=== PATIENT | female | born 1985 | race Caucasian/White ===

== ENCOUNTER → 2019-05-12 15:32 | Outpatient (BNVA) | payer MEDICARE, MEDICAID, SELFPAY | PROVIDERS: Family Provider Registered Nurse; PCP Registered Nurse; Referring Provider Nurse Practitioner Women's Health; Visit Provider Nurse Practitioner Women's Health | DX: Z30.9 Encounter for contraceptive management, unspecified (principal) | CPT/HCPCS: 81025 ==

== ENCOUNTER → 2019-08-04 10:46 | Outpatient (BNVA) | payer MEDICARE, MEDICAID, SELFPAY | PROVIDERS: Family Provider Registered Nurse; PCP Registered Nurse; Visit Provider Registered Nurse | DX: Z20.828 Contact with and (suspected) exposure to other viral communicable diseases (principal) | CPT/HCPCS: 87635 ==

== ENCOUNTER → 2019-11-23 11:55 | Outpatient (BNVA) | payer MEDICARE, MEDICAID, SELFPAY | PROVIDERS: Family Provider Registered Nurse; PCP Registered Nurse; Visit Provider Nurse Practitioner Women's Health | DX: Z30.42 Encounter for surveillance of injectable contraceptive (principal); N92.1 Excessive and frequent menstruation with irregular cycle | CPT/HCPCS: 81025 ==

== ENCOUNTER → 2020-05-18 09:34 | Outpatient (BNVA) | payer MEDICARE, MEDICAID, SELFPAY | PROVIDERS: Family Provider Registered Nurse; PCP Registered Nurse; Visit Provider Registered Nurse | DX: N92.1 Excessive and frequent menstruation with irregular cycle (principal); Z30.9 Encounter for contraceptive management, unspecified | CPT/HCPCS: 81025 ==

== ENCOUNTER → 2020-07-30 11:13 | Outpatient (BNVA) | payer MEDICARE, MEDICAID, SELFPAY | PROVIDERS: Family Provider Registered Nurse; PCP Registered Nurse; Visit Provider Nurse Practitioner | DX: M79.672 Pain in left foot (principal) | CPT/HCPCS: 73630 ==

== ENCOUNTER 2020-08-14 07:04 | Outpatient (CLI) | payer MEDICARE, MEDICAID, SELFPAY ==
--- NOTE | 2020-08-14 07:15 | MR_ITS ---
WS: [id number] INDICATION: Left foot pain. Sharp pain left foot to toes. Left foot swelling. TECHNIQUE: MRI left foot without gadolinium enhancement. Sagittal PD, axial T1, axial STIR axial PD a xial T2 sagittal STIR, coronal PD coronal T2 fat sat FINDINGS: Normal ankle mortise. Normal medial and lateral malleolus. Normal talus. Normal talar dome. Distal Achilles is normal in appearance. Normal bone marrow signal in the calcaneus. Normal talocalc aneal articulation. Normal peroneus longus and brevis. Normal extensor and flexor compartment tendons. Normal metatarsals . Normal talus. Normal plantar aponeurosis. No drainable abscess or fluid collection. No other signif icant findings. MR/MR foot LT wo con* [id number] IMPRESSION: 1. Normal ankle mortise. Normal bone marrow signal in the talar dome. 2. Normal peroneal longus and brevis. 3. Normal extensor and flexor compartment tendons. 4. No acute fractures. 5. No other significant findings.
== END 2020-08-14 07:05 | disposition home or self-care (01) ==
LOC: RADSHAW 07:08
PROVIDERS: PCP Nurse Practitioner Family; Visit Provider Nurse Practitioner Family
DX: M79.672 Pain in left foot (principal); M79.89 Other specified soft tissue disorders
CPT/HCPCS: 73718

== ENCOUNTER 2020-11-23 11:32 | Outpatient (CLI) | payer MEDICARE, MEDICAID, SELFPAY ==
--- NOTE | 2020-11-23 11:38 | MR_ITS ---
WS: [id number] MRI HEAD WITH CONTRAST TECHNIQUE: Sagittal T1, T2 axial, T2 axial FLAIR, axial susceptibility weighted imaging, axial diffus ion weighted images, and coronal T2 images were obtained. Pre and post-T1 axial and post T1 coronal i mages. ADC and FSPGR images. CLINICAL INFORMATION: HEADACHE COMPARISON: MRI FINDINGS: No evidence of restricted diffusion to suggest acute ischemia. Ventricular system and basal cisterns are patent. Normal posterior fossa. Normal vascular flow voids at the skull base. No extra-axial flui d collections. No evidence of mass or mass effect. Mastoid air cells well aerated. Retention cyst left maxillary sinus. Paranasal sinuses are otherwise well aerated. No hemosiderin on susceptibly weighted images. Normal optic chiasm and pituitary infund ibulum. Normal cavernous sinuses and Meckel's cave. Temporal lobes and hippocampal formations are nor mal in appearance. No abnormal intracranial enhancement. Normal dural venous sinuses. Minimal incidental low-lying cereb ral tonsils. Normal fourth ventricle. MR/MR head wo/w con [id number] IMPRESSION: 1. No evidence of restricted diffusion to suggest acute ischemia. 2. A few tiny foci of T2 hyperintensity in the frontal periventricular and sub cortical white matter nonspecific in a patient this age but can be seen with mi graine headaches. 3. No abnormal gadolinium enhancement. Normal dural venous sinuses. 4. No hemosiderin on susceptibly weighted images. 5. No other significant findings.
[2020-11-23] MEDS: gadobenate dimeglumine 20 mL vial IV (16:14)
== END 2020-11-23 11:33 | disposition home or self-care (01) ==
LOC: RADSHAW 11:36
PROVIDERS: PCP Nurse Practitioner Family; Visit Provider Nurse Practitioner Family
DX: R51.9 Headache, unspecified (principal)
CPT/HCPCS: 70553; 88175; A9577

== ENCOUNTER → 2021-01-05 14:33 | Outpatient (BNVA) | payer MEDICARE, MEDICAID, SELFPAY | PROVIDERS: PCP Nurse Practitioner Family; Referring Provider Nurse Practitioner Women's Health; Visit Provider Dermatology | DX: B36.0 Pityriasis versicolor (principal); L73.9 Follicular disorder, unspecified; L85.8 Other specified epidermal thickening; Z80.8 Family history of malignant neoplasm of other organs or systems; D22.9 Melanocytic nevi, unspecified | CPT/HCPCS: 87220 ==

== ENCOUNTER → 2021-07-03 10:22 | Outpatient (BNVA) | payer MEDICARE, MEDICAID, SELFPAY | PROVIDERS: PCP Nurse Practitioner Family; Referring Provider Nurse Practitioner Family; Visit Provider Internal Medicine | DX: M25.50 Pain in unspecified joint (principal); R79.82 Elevated C-reactive protein (CRP); Z11.59 Encounter for screening for other viral diseases | CPT/HCPCS: 36415; 72202; 73120; 82024; 82550; 82784; 83516; 85651; 86140; 86160; 86162; 86200; 86235; 86255; 86376; 86431; 86704; 86803; 87340; 99204 ==

== ENCOUNTER → 2021-07-11 14:28 | Outpatient (BNVA) | payer MEDICARE, MEDICAID, SELFPAY | PROVIDERS: PCP Nurse Practitioner Family; Visit Provider Internal Medicine | DX: M25.50 Pain in unspecified joint (principal); R79.82 Elevated C-reactive protein (CRP); R79.89 Other specified abnormal findings of blood chemistry; Z79.899 Other long term (current) drug therapy | CPT/HCPCS: 99214 ==

== ENCOUNTER → 2021-07-16 08:04 | Outpatient (BNVA) | payer MEDICARE, MEDICAID, SELFPAY | PROVIDERS: PCP Nurse Practitioner Family; Visit Provider Internal Medicine | DX: R79.89 Other specified abnormal findings of blood chemistry (principal) | CPT/HCPCS: 82024; 82533 ==

== ENCOUNTER → 2021-08-07 14:15 | Outpatient (BNVA) | payer MEDICARE, MEDICAID, SELFPAY | PROVIDERS: PCP Nurse Practitioner Family; Visit Provider Internal Medicine | DX: R74.8 Abnormal levels of other serum enzymes (principal); K52.9 Noninfective gastroenteritis and colitis, unspecified; R79.89 Other specified abnormal findings of blood chemistry; M25.50 Pain in unspecified joint; R79.82 Elevated C-reactive protein (CRP); F41.8 Other specified anxiety disorders; M79.7 Fibromyalgia; G47.00 Insomnia, unspecified | CPT/HCPCS: 80053; 82103; 82390; 83516; 85025; 86376 ==

== ENCOUNTER → 2021-08-16 14:39 | Outpatient (BNVA) | payer MEDICARE, MEDICAID, SELFPAY | PROVIDERS: PCP Nurse Practitioner Family; Visit Provider Internal Medicine | DX: R79.89 Other specified abnormal findings of blood chemistry (principal); R23.8 Other skin changes | CPT/HCPCS: 99204 ==

== ENCOUNTER 2021-08-20 05:45 | Day surgery (SDC) | payer MEDICARE, MEDICAID, SELFPAY ==
[2021-08-16 13:20] VITALS: BMI 34.0
[2021-08-20 06:25] VITALS: BP 143/79; PULSE 79; RESP 16; TEMP 36.6; O2SAT 99
[2021-08-20] MEDS: sodium chloride 0.9% 1,000 ML 30 ML IV (06:43)
[2021-08-20 06:45] LABS: OR HCG Qualitative Urine Negative (Negative)
--- NOTE | 2021-08-20 06:50 | ANES.PREANE2 ---
Pre-Anesthetic Assessment Height/Weight: Height 1.73 m Weight 101.605 kg Temp Pulse Resp BP Pulse Ox 97.8 F 79 16 143/79 99 08/20/21 06:25 08/20/21 06:25 08/20/21 06:25 08/20/21 06:25 08/20/21 06:25 Preop Diagnosis: diarrhea Operation Date: 08/20/21 07:00 Proposed Procedures p EGD and colonoscopy 00586,49033,K52.9(Not Applicable) - Redd Pham MD s Colonoscopy(Not Applicable) - Redd Pham MD Familial anesthetic complications: None Was Beta Yokasta taken within 24 hours: N/A Was Clonidine taken within 24 hours: N/A Last intake: Intake Last Liquid Date 08/19/21 Last Liquid Time 22:00 Last Solid Date 08/18/21 Last Solid Time 19:00 Social No alcohol and No tobacco Exam alert, oriented x 3, clear to auscultation bilaterally and regular rate & rhythm Airway Submandibular: within normal limits Cervical ROM: within normal limits Mallampati: Class III Dentition: chipped and loose Comments: Comments: very poor History/ROS Other Pulmonary None reported CV/HEM None reported None reported Hepatic None reported GI Gastroesophageal Reflux Disease Metabolic None reported Musc/skel Fibromyalgia and Osteoarthritis/DJD Neuropsych Depression and Headache Anesthetic Plan ASA status: 2 Anesthesia: MAC Risk of > 500 ml blood loss (7ml/kg in children): No Medications/Allergies Home Medications Medication Instructions Recorded Confirmed Last Taken Type gabapentin 100 mg capsule 100 mg PO TID 09/19/20 08/20/21 08/18/21 History medroxyprogesterone 150 mg/mL 150 mg IM .every 3 months #1 ml 11/24/20 08/20/21 05/22/21 Rx intramuscular syringe (Depo-Provera) clindamycin phosphate 1 % lotion 1 applic TOPICAL BID #60 ml 01/05/21 08/20/21 08/18/21 Rx ketoconazole 2 % shampoo 1 applic TOPICAL ONCE #120 ml 01/05/21 08/20/21 08/18/21 Rx ketoconazole 2 % topical cream 1 applic TOPICAL BID #60 g 01/05/21 08/20/21 08/18/21 Rx rizatriptan 10 mg tablet (Maxalt) 10 mg PO Q2H PRN 01/05/21 08/20/21 08/18/21 History semaglutide 3 mg tablet (Rybelsus) 3 mg PO DAILY 01/05/21 08/20/21 08/18/21 History triamcinolone acetonide 0.1 % 1 applic TOPICAL BID #80 g 02/08/21 08/20/21 Unknown Rx topical ointment amitriptyline 10 mg tablet 20 mg PO DAILY tab 07/03/21 08/20/21 08/18/21 History sertraline 50 mg tablet (Zoloft) 75 mg PO DAILY tab 07/03/21 08/20/21 08/18/21 History topiramate 25 mg tablet (Topamax) 25 mg PO TID tab 07/03/21 08/20/21 08/18/21 History tramadol 50 mg tablet 50 mg PO DAILY PRN 07/03/21 08/20/21 Unknown History meloxicam 15 mg tablet 15 mg PO DAILY #30 tab 08/10/21 08/20/21 08/18/21 Rx Allergies Allergy/AdvReac Type Severity Reaction Status Date / Time aspirin Allergy ALGY-Hives Verified 08/16/21 14:45 Sulfa (Sulfonamide Allergy ALGY-Hives Verified 08/16/21 14:45 Antibiotics) codeine AdvReac ADR-Nausea- Verified 08/16/21 14:45 STOMACH UPSET ibuprofen AdvReac ADR-Nausea- Verified 08/16/21 14:45 STOMACH UPSET naproxen AdvReac ADR-Nausea- Verified 08/16/21 14:45 STOMACH UPSET Current Medications Generic Name Dose Route Start Last Admin Trade Name Freq PRN Reason Stop Dose Admin Sodium Chloride 1,000 mls @ 30 mls/hr 08/20/21 06:00 08/20/21 06:43 Sodium Chloride 0.9% IV 30 mls/hr .Q24H BEL Administration PFSH Anesthesia Medical History Anxiety with depression Fibromyalgia High serum adrenocorticotropic hormone (ACTH) Insomnia, controlled Menorrhagia with irregular cycle Migraine Morbid obesity No pertinent past medical history neghx: htn,dm,thyroid,dvt/pe PCP: Nomi Osteoarthritis of both hands Surgical History H/O laparoscopy (07/18/08) Diagnostic laparoscopy performed on 07/18/2008. Records obtained and are scanned ----Procedure performed by Javy Frias in [facility] ambulatory surgery. Diagnostic laparoscopy was performed for pelvic pain of unknown etiology and history of endometriosis, history of PID. --Reviewed operative report shows that the uterus was normal size and mobile within the pelvis anterior cul-de-sac was clear showing no signs of adhesions or endometriosis posterior cul-de-sac was clear without signs of endometriosis or induration. Bilateral fallopian tubes were normal without signs of PID. Bilateral ovaries were normal without any adhesions or endometriosis. Appendix appeared normal. No adhesions noted around the liver. The diagnostic laparoscopy was within normal physiological limits and no obvious etiology of pain was present. History of cholecystectomy (2002) [facility]--- laparoscopic procedure. History of hysteroscopy (05/02/05) Pelviscopy with D&C--- performed by Dr. Marino at [facility]--> mild uterine enlargement and mild endometriosis on the left side Family History Grandfather Colon cancer Maternal grandfather--dx age 60's Family/Other Diabetes Maternal great aunt Uterine cancer Maternal aunt--dx age 50's Maternal Cousin x2-- both early 30's Mother Hypertension Uterine cancer dx age 45 Grandmother Ovarian cancer Maternal grandmother--dx age late 40's Other CAD (coronary artery disease) Cancer Denies family history of Rheumatoid arthritis Lupus Heart disease Hyperlipidemia Chronic kidney disease (CKD) Breast cancer Family history of thyroid problem Stroke Social History Smoking and tobacco status: never smoked Alcohol intake: former History of recent travel: No Data Anesthesia Cardiac Studies: No Data to Display
--- NOTE | 2021-08-20 07:16 | P.HP_ITS ---
Same Day Surgery H&P Indication for Procedure/HPI DATE OF PROCEDURE: August 20, 2021 CHIEF COMPLAINT/INDICATIONFOR SURGICAL PROCEDURE: Chronic diarrhea PREOP DIAGNOSIS: diarrhea PLANNED PROCEDURE: Operation Date: 08/20/21 07:00 Proposed Procedures p EGD and colonoscopy 86750,28025,K52.9(Not Applicable) - Redd Pham MD s Colonoscopy(Not Applicable) - Redd Pham MD Medications/Allergies* Home Medications Medication Instructions Recorded Confirmed Type gabapentin 100 mg capsule 100 mg PO TID 09/19/20 08/20/21 History rizatriptan 10 mg tablet (Maxalt) 10 mg PO Q2H PRN 01/05/21 08/20/21 History semaglutide 3 mg tablet (Rybelsus) 3 mg PO DAILY 01/05/21 08/20/21 History amitriptyline 10 mg tablet 20 mg PO DAILY tab 07/03/21 08/20/21 History sertraline 50 mg tablet (Zoloft) 75 mg PO DAILY tab 07/03/21 08/20/21 History topiramate 25 mg tablet (Topamax) 25 mg PO TID tab 07/03/21 08/20/21 History tramadol 50 mg tablet 50 mg PO DAILY PRN 07/03/21 08/20/21 History Allergies/Adverse Reactions Allergy/AdvReac Type Severity Reaction Status Date / Time aspirin Allergy ALGY-Hives Verified 08/16/21 14:45 Sulfa (Sulfonamide Allergy ALGY-Hives Verified 08/16/21 14:45 Antibiotics) codeine AdvReac ADR-Nausea- Verified 08/16/21 14:45 STOMACH UPSET ibuprofen AdvReac ADR-Nausea- Verified 08/16/21 14:45 STOMACH UPSET naproxen AdvReac ADR-Nausea- Verified 08/16/21 14:45 STOMACH UPSET Current Medications: Generic Name Dose Route Start Last Admin Trade Name Freq PRN Reason Stop Dose Admin Sodium Chloride 1,000 mls @ 30 mls/hr 08/20/21 06:00 08/20/21 06:43 Sodium Chloride 0.9% IV 30 mls/hr .Q24H BEL Administration Pertinent History/Comorbid Conditions* Medical History (Updated 08/16/21 @ 15:15 by Deyvi Ryan MD) Anxiety with depression Fibromyalgia High serum adrenocorticotropic hormone (ACTH) Insomnia, controlled Menorrhagia with irregular cycle Migraine Morbid obesity No pertinent past medical history neghx: htn,dm,thyroid,dvt/pe PCP: Nomi Osteoarthritis of both hands Surgical History (Updated 11/23/19 @ 08:58 by Mariella Nathan APN, TIFF) H/O laparoscopy (07/18/08) Diagnostic laparoscopy performed on 07/18/2008. Records obtained and are scanned ----Procedure performed by Javy Frias in [facility] ambulatory surgery. Diagnostic laparoscopy was performed for pelvic pain of unknown etiology and history of endometriosis, history of PID. --Reviewed operative report shows that the uterus was normal size and mobile within the pelvis anterior cul-de-sac was clear showing no signs of adhesions or endometriosis posterior cul-de-sac was clear without signs of endometriosis or induration. Bilateral fallopian tubes were normal without signs of PID. Bilateral ovaries were normal without any adhesions or endometriosis. Appendix appeared normal. No adhesions noted around the liver. The diagnostic laparoscopy was within normal physiological limits and no obvious etiology of pain was present. History of cholecystectomy (2002) [facility]--- laparoscopic procedure. History of hysteroscopy (05/02/05) Pelviscopy with D&C--- performed by Dr. Mairno at [facility]--> mild uterine enlargement and mild endometriosis on the left side Family History (Updated 07/03/21 @ 10:55 by Ivory Morales LPN) Colon cancer Grandfather Maternal grandfather--dx age 60's Ovarian cancer Grandmother Maternal grandmother--dx age late 40's Diabetes Family/Other Maternal great aunt CAD (coronary artery disease) Cancer Hypertension Mother Uterine cancer Family/Other Maternal aunt--dx age 50's Maternal Cousin x2-- both early 30's Mother dx age 45 Denies family history of Rheumatoid arthritis Lupus Heart disease Hyperlipidemia Chronic kidney disease (CKD) Breast cancer Family history of thyroid problem Stroke Social History Smoking and tobacco status: never smoked Alcohol intake: former History of recent travel: No Pertinent Exam Findings alert, oriented x 3, clear to auscultation bilaterally, regular rate & rhythm, operative site marked and procedure specific exam findings Recommendations Surgery/Procedure today Coding Level of Care Code Acute 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
--- NOTE | 2021-08-20 07:44 | ANE.PACU2 ---
Inpatient post-anesthesia follow up: Airway intact: Yes Vital signs: Temperature 97.8 F Pulse Rate 79 Respiratory Rate 16 Blood Pressure 143/79 Pulse Oximetry 99 Oxygen Delivery Me thod Room Air Oxygen Flow Rate Fraction of Inspir ed Oxygen Hydration adequate: Yes Nausea and vomiting: No Pain level: 1 Mental status: Baseline
[2021-08-20 07:45] VITALS: BP 134/91; PULSE 91; RESP 12; TEMP 36.1; O2SAT 99
[2021-08-20 07:57] VITALS: BP 127/80; PULSE 76; RESP 16; O2SAT 100
[2021-08-22 06:45] LABS: H. Pylori / CLO Test Negative
== END 2021-08-20 08:10 | disposition home or self-care (01) ==
PROVIDERS: Anesthesiology; PCP Nurse Practitioner Family; Visit Provider Internal Medicine
PROC: 0DJ08ZZ Inspection of Upper Intestinal Tract, Via Natural or Artificial Opening Endoscopic (ICD-10-PCS; CPT 43235; principal; 2021-08-20 07:00)
PROC: 0DJD8ZZ Inspection of Lower Intestinal Tract, Via Natural or Artificial Opening Endoscopic (ICD-10-PCS; CPT 45378; 2021-08-20 07:00)
DX: K52.9 Noninfective gastroenteritis and colitis, unspecified (principal); K29.70 Gastritis, unspecified, without bleeding; K21.9 Gastro-esophageal reflux disease without esophagitis; M79.7 Fibromyalgia; M19.90 Unspecified osteoarthritis, unspecified site; F41.9 Anxiety disorder, unspecified; F32.9 Major depressive disorder, single episode, unspecified; E66.01 Morbid (severe) obesity due to excess calories; Z68.34 Body mass index [BMI] 34.0-34.9, adult; Z80.0 Family history of malignant neoplasm of digestive organs
CPT/HCPCS: 43239; 45378; 82274; 83630; 84703; 87077; 87493; 87506; 88305; J2704; J7030

== ENCOUNTER → 2021-11-20 08:31 | Outpatient (BNVA) | payer MEDICARE, MEDICAID, SELFPAY | PROVIDERS: PCP Nurse Practitioner Family; Visit Provider Internal Medicine | DX: M25.50 Pain in unspecified joint (principal); R79.89 Other specified abnormal findings of blood chemistry; Z79.899 Other long term (current) drug therapy; Z30.9 Encounter for contraceptive management, unspecified | CPT/HCPCS: 80053; 85025; 85651; 86140 ==

== ENCOUNTER → 2021-12-05 16:03 | Outpatient (BNVA) | payer MEDICAID, SELFPAY | PROVIDERS: PCP Nurse Practitioner Family; Visit Provider Internal Medicine | DX: M25.50 Pain in unspecified joint (principal); R79.82 Elevated C-reactive protein (CRP) | CPT/HCPCS: 99213 ==

== ENCOUNTER → 2022-02-26 14:54 | Outpatient (BNVA) | payer MEDICARE, MEDICAID, SELFPAY | PROVIDERS: PCP Nurse Practitioner Family; Visit Provider Nurse Practitioner Women's Health | DX: N92.1 Excessive and frequent menstruation with irregular cycle (principal) | CPT/HCPCS: 81025 ==

== ENCOUNTER 2022-03-06 09:51 | Outpatient (CLI) | payer MEDICARE, MEDICAID, SELFPAY ==
[2022-03-06 10:56] LABS: Urine Creatinine 75 mg/dL (28-217)
[2022-03-06 10:57] LABS: Total Volume Urine 2200 ml
[2022-03-14 08:34] LABS: Free Cortisol Urine 40.3 mcg/24 h (4.0-50.0); Total Urine 2200 mL; Urine Creatinine 1.69 g/24 h (0.50-2.15)
== END 2022-03-06 09:52 | disposition home or self-care (01) ==
LOC: LAB 10:10
PROVIDERS: PCP Nurse Practitioner Family; Visit Provider Internal Medicine
DX: R79.89 Other specified abnormal findings of blood chemistry (principal); R74.8 Abnormal levels of other serum enzymes
CPT/HCPCS: 82530; 82570

== ENCOUNTER → 2022-04-10 14:55 | Outpatient (BNVA) | payer MEDICARE, MEDICAID, SELFPAY | PROVIDERS: PCP Nurse Practitioner Family; Visit Provider Internal Medicine | DX: R79.82 Elevated C-reactive protein (CRP) (principal); M25.541 Pain in joints of right hand; M25.542 Pain in joints of left hand; M25.571 Pain in right ankle and joints of right foot; M25.572 Pain in left ankle and joints of left foot; R60.9 Edema, unspecified; J06.9 Acute upper respiratory infection, unspecified | CPT/HCPCS: 99214 ==

== ENCOUNTER → 2022-06-04 09:34 | Outpatient (BNVA) | payer MEDICARE, MEDICAID, SELFPAY | PROVIDERS: PCP Nurse Practitioner Family; Visit Provider Nurse Practitioner Women's Health | DX: Z30.9 Encounter for contraceptive management, unspecified (principal) | CPT/HCPCS: 81025 ==

== ENCOUNTER 2022-07-02 09:33 | Outpatient (CLI) | payer MEDICARE, MEDICAID, SELFPAY ==
[2022-07-02 10:24] LABS: Basophils % 0.5 %; Eosinophils # 0.1 10^3/uL (0.0-0.8); Eosinophils % 0.9 %; Hematocrit 41.3 % (37.0-47.0); Hemoglobin 13.5 g/dL (11.5-15.3); Lymphocytes # 1.4 10^3/uL (0.8-4.8); Lymphocytes % 21.3 %; Mean Corpuscular HGB Conc 32.7 g/dL (30.0-36.0); Mean Corpuscular Hemoglobin 29.1 pg (28.0-34.0); Mean Platelet Volume 9.4 fL (7.4-10.4); Monocytes # 0.4 10^3/uL (0.2-0.9); Neutrophils # 4.74 10^3/uL (1.8-7.7); Neutrophils % 71.1 %; Nucleated Red Blood Cells % 0 %; Platelet Count 315 10^3/cmm (130-400); Red Blood Count 4.64 10^6/uL (4.1-5.3); Red Cell Distribution Width 12.2 % (12.1-15.1); White Blood Count 6.7 10^3/uL (4.0-10.0)
[2022-07-02 10:30] LABS: Erythrocyte Sedimentation Rate 16 mm/hr (0-15)
[2022-07-02 10:45] LABS: Alanine Aminotransferase 20 U/L (0-33); Albumin Level 4.2 g/dL (3.5-5.2); Alkaline Phosphatase 66 U/L (35-105); Anion Gap 15.1 (5-19); Aspartate Amino Transferase 19 U/L (0-32); Blood Urea Nitrogen 13 mg/dL (6-20); C Reactive Protein 4.1 mg/L (0.0-4.9); Calcium 9.2 mg/dL (8.5-10.5); Carbon Dioxide 22 mmol/L (22-29); Chloride 104 mmol/L (98-107); Glomerular Filtration Rate 139.6 mL/min (90-130); Glucose 83 mg/dL (65-115); Osmolality Calculated 283 mOsm/kg (285-295); Potassium 4.1 mmol/L (3.5-5.1); Sodium 137 mmol/L (136-145); Total Bilirubin 0.4 mg/dL (0.15-1.2); Total Protein 7.2 g/dL (6.6-8.7)
== END 2022-07-02 09:34 | disposition home or self-care (01) ==
PROVIDERS: PCP Nurse Practitioner Family; Visit Provider Internal Medicine
DX: M25.50 Pain in unspecified joint (principal)
CPT/HCPCS: 36415; 80053; 83516; 85025; 85651; 86140

== ENCOUNTER → 2022-10-21 08:40 | Outpatient (BNVA) | payer MEDICARE, MEDICAID, SELFPAY | PROVIDERS: PCP Nurse Practitioner Family; Visit Provider Podiatrist Foot & Ankle Surgery | DX: M25.372 Other instability, left ankle | CPT/HCPCS: 73610; 99203 ==

== ENCOUNTER → 2022-12-02 09:18 | Outpatient (BNVA) | payer MEDICARE, MEDICAID, SELFPAY | PROVIDERS: PCP Nurse Practitioner Family; Visit Provider Podiatrist Foot & Ankle Surgery | DX: M25.372 Other instability, left ankle (principal) | CPT/HCPCS: 99213 ==

== ENCOUNTER → 2023-04-01 14:05 | Outpatient (BNVA) | payer MEDICARE, MEDICAID, SELFPAY | PROVIDERS: PCP Nurse Practitioner Family; Visit Provider Podiatrist Foot & Ankle Surgery | DX: M25.372 Other instability, left ankle (principal) | CPT/HCPCS: 99213 ==

== ENCOUNTER → 2023-04-30 13:23 | Outpatient (BNVA) | payer MEDICARE, MEDICAID, SELFPAY | PROVIDERS: PCP Nurse Practitioner Family; Referring Provider Family Medicine; Visit Provider Surgery | DX: Z98.890 Other specified postprocedural states (principal); Z90.49 Acquired absence of other specified parts of digestive tract | CPT/HCPCS: 99203 ==

== ENCOUNTER → 2023-07-09 09:59 | Outpatient (BNVA) | payer MEDICARE, MEDICAID, SELFPAY | PROVIDERS: PCP Nurse Practitioner Family; Visit Provider Podiatrist Foot & Ankle Surgery | DX: M25.372 Other instability, left ankle (principal); M25.572 Pain in left ankle and joints of left foot; G89.29 Other chronic pain | CPT/HCPCS: 99213 ==

== ENCOUNTER → 2023-07-31 10:08 | Outpatient (BNVA) | payer MEDICARE, MEDICAID, SELFPAY | PROVIDERS: PCP Nurse Practitioner Family; Visit Provider Podiatrist Foot & Ankle Surgery | DX: M25.372 Other instability, left ankle; M25.572 Pain in left ankle and joints of left foot; G89.29 Other chronic pain | CPT/HCPCS: 99212 ==

== ENCOUNTER → 2023-09-09 08:10 | Outpatient (BNVA) | payer MEDICARE, MEDICAID, SELFPAY | PROVIDERS: PCP Family Medicine; Visit Provider Podiatrist Foot & Ankle Surgery | DX: M25.372 Other instability, left ankle (principal); M25.572 Pain in left ankle and joints of left foot | CPT/HCPCS: 99213 ==

== ENCOUNTER 2023-09-25 06:26 | Day surgery (SDC) | payer MEDICARE, MEDICAID, SELFPAY ==
--- NOTE | 2023-09-25 06:12 | P.HP_ITS ---
Same Day Surgery H&P Indication for Procedure/HPI DATE OF PROCEDURE: September 25, 2023 CHIEF COMPLAINT/INDICATIONFOR SURGICAL PROCEDURE: history of sigmoid colectomy PREOP DIAGNOSIS: diverticulosis PLANNED PROCEDURE: Operation Date: 09/25/23 07:30 Proposed Procedures p 86108 colon G0105 screen colon H risk Z98.890(Not Applicable) - Jeff White MD Medications/Allergies* Home Medications Medication Instructions Recorded Confirmed Type rizatriptan 10 mg tablet (Maxalt) 10 mg PO Q2H PRN migraines 01/05/21 09/23/23 History sertraline 50 mg tablet (Zoloft) 75 mg PO DAILY 07/03/21 09/23/23 History topiramate 25 mg tablet (Topamax) 25 mg PO TID 07/03/21 09/23/23 History tramadol 50 mg tablet 50 mg PO DAILY PRN Pain 07/03/21 09/23/23 History tizanidine 2 mg tablet 2 mg PO Q8H PRN Muscle Spasm 07/09/23 09/23/23 History divalproex 250 mg tablet,delayed 250 mg PO DAILY Migraine 07/31/23 09/23/23 History release (Depakote) tizanidine 2 mg capsule 2 mg PO DAILY Fibromyalgia 07/31/23 09/23/23 History trazodone 100 mg tablet 100 mg PO DAILY 09/23/23 09/23/23 History Allergies/Adverse Reactions Allergy/AdvReac Type Severity Reaction Status Date / Time aspirin Allergy ALGY-Hives Verified 09/09/23 08:19 Sulfa (Sulfonamide Allergy ALGY-Hives Verified 09/09/23 08:19 Antibiotics) codeine AdvReac ADR-Nausea- Verified 09/09/23 08:19 STOMACH UPSET ibuprofen AdvReac ADR-Nausea- Verified 09/09/23 08:19 STOMACH UPSET naproxen AdvReac ADR-Nausea- Verified 09/09/23 08:19 STOMACH UPSET Pertinent History/Comorbid Conditions* Medical History (Updated 04/30/23 @ 14:22 by Jeff White MD) High serum adrenocorticotropic hormone (ACTH) No pertinent past medical history neghx: htn,dm,thyroid,dvt/pe PCP: Nomi Nelson Morbid obesity Menorrhagia with irregular cycle Anxiety with depression Fibromyalgia Insomnia, controlled Osteoarthritis of both hands Surgical History (Updated 07/31/23 @ 13:41 by Meño Marcial DPM) H/O foot surgery (~03/29/21) Per patient, had several bones removed from left foot. Performed by Dr. Melendez at [facility]. History of hysteroscopy (05/02/05) Pelviscopy with D&C--- performed by Dr. Marino at [facility]--> mild uterine enlargement and mild endometriosis on the left side History of cholecystectomy (2002) [facility]--- laparoscopic procedure. H/O laparoscopy (07/18/08) Diagnostic laparoscopy performed on 07/18/2008. Records obtained and are scanned ----Procedure performed by Javy Frias in [facility] ambulatory surgery. Diagnostic laparoscopy was performed for pelvic pain of unknown etiology and history of endometriosis, history of PID. --Reviewed operative report shows that the uterus was normal size and mobile within the pelvis anterior cul-de-sac was clear showing no signs of adhesions or endometriosis posterior cul-de-sac was clear without signs of endometriosis or induration. Bilateral fallopian tubes were normal without signs of PID. Bilateral ovaries were normal without any adhesions or endometriosis. Appendix appeared normal. No adhesions noted around the liver. The diagnostic laparoscopy was within normal physiological limits and no obvious etiology of pain was present. Family History (Updated 07/03/21 @ 10:55 by Ivory Morales LPN) Colon cancer Grandfather Maternal grandfather--dx age 60's Ovarian cancer Grandmother Maternal grandmother--dx age late 40's Diabetes Family/Other Maternal great aunt CAD (coronary artery disease) Cancer Hypertension Mother Uterine cancer Family/Other Maternal aunt--dx age 50's Maternal Cousin x2-- both early 30's Mother dx age 45 Denies family history of Rheumatoid arthritis Lupus Heart disease Hyperlipidemia Chronic kidney disease (CKD) Breast cancer Family history of thyroid problem Stroke Social History Smoking and tobacco/nicotine status: never used tobacco/nicotine Pertinent Exam Findings alert, oriented x 3, clear to auscultation bilaterally and regular rate & rhythm Recommendations Surgery/Procedure today Coding Level of Care Code Acute Code for Chg Fwd
[2023-09-25 06:41] VITALS: BP 149/104; PULSE 108; RESP 20; TEMP 36.3; O2SAT 97; BMI 38.0
[2023-09-25 06:51] LABS: OR HCG Qualitative Urine Negative (Negative)
[2023-09-25] MEDS: sodium chloride 0.9% 1,000 ML 30 ML IV (06:53)
--- NOTE | 2023-09-25 07:07 | P.ANESASSM_ITS ---
Pre-Anesthetic Assessment Height/Weight: Height 1.73 m Weight 113.398 kg Temp Pulse Resp BP Pulse Ox O2 Del Method 97.3 F L 108 H 20 H 149/104 97 Room Air 09/25/23 06:41 09/25/23 06:41 09/25/23 06:41 09/25/23 06:41 09/25/23 06:41 09/25/23 06:41 Preop Diagnosis: diverticulosis Operation Date: 09/25/23 07:30 Proposed Procedures p 72752 colon G0105 screen colon H risk Z98.890(Not Applicable) - Jeff White MD Familial anesthetic complications: None Was Beta Yokasta taken within 24 hours: N/A Was Clonidine taken within 24 hours: N/A Last intake: Intake Last Liquid Date 09/24/23 Last Liquid Time 23:00 Last Solid Date 09/23/23 Last Solid Time 18:00 Social No alcohol and No tobacco Exam alert, oriented x 3 and regular rate & rhythm Airway Mallampati: Class II Dentition: other (poor dentition, multiple missing and broken ) History/ROS No significant history except as noted Pulmonary None reported CV/HEM None reported None reported Hepatic None reported GI hx colon perforation, partial colectomy in mar 2023 Metabolic Morbid Obesity [facility] None reported Neuropsych None reported Anesthetic Plan ASA status: 3 Anesthesia: Anesthesia Evaluation and MAC Risk of > 500 ml blood loss (7ml/kg in children): No Medications/Allergies Home Medications Medication Instructions Recorded Confirmed Last Taken Type rizatriptan 10 mg tablet (Maxalt) 10 mg PO Q2H PRN migraines 01/05/21 09/25/23 08/18/21 History sertraline 50 mg tablet (Zoloft) 75 mg PO DAILY 07/03/21 09/25/23 08/18/21 History topiramate 25 mg tablet (Topamax) 25 mg PO TID 07/03/21 09/25/23 09/23/23 History tramadol 50 mg tablet 50 mg PO DAILY PRN Pain 07/03/21 09/25/23 09/23/23 History fluticasone propionate 50 1 spray intranasal BID PRN allergy 04/06/22 09/25/23 09/23/23 Rx mcg/actuation nasal symptoms #16 grams spray,suspension (Flonase Allergy Relief) diclofenac sodium 1 % topical gel 4 g topical QID #100 grams 07/30/22 09/25/23 09/24/23 Rx (Arthritis Pain (diclofenac)) Custom Spectrum AFO to left #1 ea 12/02/22 09/25/23 Unknown Rx medroxyprogesterone 150 mg/mL 150 mg IM .every 3 months #1 mL 12/17/22 09/25/23 Unknown Rx intramuscular syringe (Depo-Provera) fluconazole 150 mg tablet 150 mg PO ONCE #1 tab 01/14/23 09/25/23 09/23/23 Rx tizanidine 2 mg tablet 2 mg PO Q8H PRN Muscle Spasm 07/09/23 09/25/23 09/23/23 History acetaminophen 300 mg-codeine 30 mg 1 tab PO Q6H PRN pain 7 days #21 07/31/23 09/25/23 09/24/23 Rx tablet tabs divalproex 250 mg tablet,delayed 250 mg PO DAILY Migraine 07/31/23 09/25/23 09/23/23 History release (Depakote) tizanidine 2 mg capsule 2 mg PO DAILY Fibromyalgia 07/31/23 09/25/23 09/24/23 History trazodone 100 mg tablet 100 mg PO DAILY 09/23/23 09/25/23 09/23/23 History Allergies Allergy/AdvReac Type Severity Reaction Status Date / Time aspirin Allergy ALGY-Hives Verified 09/09/23 08:19 Sulfa (Sulfonamide Allergy ALGY-Hives Verified 09/09/23 08:19 Antibiotics) codeine AdvReac ADR-Nausea- Verified 09/09/23 08:19 STOMACH UPSET ibuprofen AdvReac ADR-Nausea- Verified 09/09/23 08:19 STOMACH UPSET naproxen AdvReac ADR-Nausea- Verified 09/09/23 08:19 STOMACH UPSET Current Medications Generic Name Dose Route Start Last Admin Trade Name Freq PRN Reason Stop Dose Admin Sodium Chloride 1,000 mls @ 30 mls/hr 09/25/23 06:45 09/25/23 06:53 Sodium Chloride 0.9% IV 30 mls/hr .Q24H BEL Administration PFSH Anesthesia Medical History High serum adrenocorticotropic hormone (ACTH) No pertinent past medical history neghx: htn,dm,thyroid,dvt/pe PCP: Nomi Nelson Morbid obesity Menorrhagia with irregular cycle Anxiety with depression Fibromyalgia Insomnia, controlled Osteoarthritis of both hands Surgical History H/O foot surgery (~03/29/21) Per patient, had several bones removed from left foot. Performed by Dr. Melendez at [facility]. History of hysteroscopy (05/02/05) Pelviscopy with D&C--- performed by Dr. Marino at [facility]--> mild uterine enlargement and mild endometriosis on the left side History of cholecystectomy (2002) [facility]--- laparoscopic procedure. H/O laparoscopy (07/18/08) Diagnostic laparoscopy performed on 07/18/2008. Records obtained and are scanned ----Procedure performed by Javy Frias in [facility] ambulatory surgery. Diagnostic laparoscopy was performed for pelvic pain of unknown etiology and history of endometriosis, history of PID. --Reviewed operative report shows that the uterus was normal size and mobile within the pelvis anterior cul-de-sac was clear showing no signs of adhesions or endometriosis posterior cul-de-sac was clear without signs of endometriosis or induration. Bilateral fallopian tubes were normal without signs of PID. Bilateral ovaries were normal without any adhesions or endometriosis. Appendix appeared normal. No adhesions noted around the liver. The diagnostic laparoscopy was within normal physiological limits and no obvious etiology of pain was present. Family History Grandfather Colon cancer Maternal grandfather--dx age 60's Family/Other Diabetes Maternal great aunt Uterine cancer Maternal aunt--dx age 50's Maternal Cousin x2-- both early 30's Mother Hypertension Uterine cancer dx age 45 Grandmother Ovarian cancer Maternal grandmother--dx age late 40's Other CAD (coronary artery disease) Cancer Denies family history of Rheumatoid arthritis Lupus Heart disease Hyperlipidemia Chronic kidney disease (CKD) Breast cancer Family history of thyroid problem Stroke Social History Smoking and tobacco/nicotine status: never used tobacco/nicotine Data Anesthesia Cardiac Studies: No Data to Display
[2023-09-25 08:05] VITALS: BP 136/72; PULSE 97; RESP 18; TEMP 36.2; O2SAT 93
[2023-09-25 08:16] VITALS: BP 136/73; PULSE 91; RESP 18; O2SAT 96
[2023-09-25 08:25] VITALS: BP 129/81; PULSE 83; RESP 18; O2SAT 93
--- NOTE | 2023-09-25 08:35 | ANE.PACU2 ---
Inpatient post-anesthesia follow up: Airway intact: Yes Vital signs: Temperature 97.2 F Pulse Rate 83 Respiratory Rate 18 Blood Pressure 129/81 Pulse Oximetry 93 Oxygen Delivery Me thod Room Air Oxygen Flow Rate Fraction of Inspir ed Oxygen Hydration adequate: Yes Nausea and vomiting: No Pain level: 1 Mental status: Baseline
== END 2023-09-25 08:35 | disposition home or self-care (01) ==
PROVIDERS: Anesthesiology; PCP Family Medicine; Visit Provider Surgery
PROC: 0DJD8ZZ Inspection of Lower Intestinal Tract, Via Natural or Artificial Opening Endoscopic (ICD-10-PCS; CPT 45378; principal; 2023-09-25 07:30)
DX: Z12.11 Encounter for screening for malignant neoplasm of colon (principal); Z98.890 Other specified postprocedural states; Z90.49 Acquired absence of other specified parts of digestive tract; D12.8 Benign neoplasm of rectum; E66.01 Morbid (severe) obesity due to excess calories; Z68.38 Body mass index [BMI] 38.0-38.9, adult; M79.7 Fibromyalgia; Z80.0 Family history of malignant neoplasm of digestive organs
CPT/HCPCS: 45380; 81025; 88305; J2704; J7030

== ENCOUNTER → 2023-10-31 07:56 | Outpatient (BNVA) | payer MEDICARE, MEDICAID, SELFPAY | PROVIDERS: PCP Family Medicine; Visit Provider Surgery | DX: Z09 Encounter for follow-up examination after completed treatment for conditions other than malignant neoplasm (principal) | CPT/HCPCS: 99213 ==

== ENCOUNTER → 2023-11-05 08:26 | Outpatient (BNVA) | payer MEDICARE, MEDICAID, SELFPAY | PROVIDERS: PCP Family Medicine; Visit Provider Podiatrist Foot & Ankle Surgery | DX: Z01.818 Encounter for other preprocedural examination (principal); M25.372 Other instability, left ankle; M65.872 Other synovitis and tenosynovitis, left ankle and foot | CPT/HCPCS: 99214 ==

== ENCOUNTER 2023-11-07 08:57 | Day surgery (SDC) | payer MEDICARE, MEDICAID, SELFPAY ==
[2023-11-07] VITALS (10 sets, daily range): BP systolic 98–124; BP diastolic 57–85; PULSE 66–84; RESP 15–20; TEMP 36.4–36.8; O2SAT 92–98; BMI 38.0
[2023-11-07] MEDS: gabapentin 300 mg Capsule PO (09:34)
[2023-11-07] MEDS: sodium chloride 0.9% 1,000 ML 30 ML IV (09:34)
--- NOTE | 2023-11-07 10:10 | ANES.PREANE2 ---
Pre-Anesthetic Assessment Height/Weight: Height 5 ft 8 in Weight 250 lb Temp Pulse Resp BP Pulse Ox O2 Del Method 97.5 F L 81 18 124/85 98 Room Air 11/07/23 09:34 11/07/23 09:34 11/07/23 09:34 11/07/23 09:34 11/07/23 09:34 11/07/23 09:34 Preop Diagnosis: Posttraumatic arthritis left ankle Operation Date: 11/07/23 10:40 Proposed Procedures p Ankle Arthroscopy and debridement(Left) - Meño Marcial DPM Familial anesthetic complications: None Last intake: Intake Last Liquid Date 11/06/23 Last Liquid Time 23:00 Last Solid Date 11/06/23 Last Solid Time 19:00 Social No alcohol and No tobacco Exam alert, oriented x 3, clear to auscultation bilaterally and regular rate & rhythm Airway Submandibular: within normal limits Cervical ROM: within normal limits Mallampati: Class III Dentition: other (Extremely poor dentition, multiple black/decaying teeth. Patient denies any loose teeth) Anesthetic Plan ASA status: 3 Anesthesia: General and Regional (specify below) Other: No prior issues with anesthesia NPO since midnight On chronic tramadol for fibromyalgia/chronic pain Patient denies any pulmonary or cardiac issues On disability for too many medical issues S/p sigmoidectomy Plan for general anesthesia with preop peripheral nerve block Medications/Allergies Home Medications Medication Instructions Recorded Confirmed Last Taken Type rizatriptan 10 mg tablet (Maxalt) 10 mg PO Q2H PRN migraines 01/05/21 11/06/23 11/06/23 History sertraline 50 mg tablet (Zoloft) 75 mg PO DAILY 07/03/21 11/06/23 11/06/23 History topiramate 25 mg tablet (Topamax) 25 mg PO TID 07/03/21 11/06/23 11/06/23 History tramadol 50 mg tablet 50 mg PO DAILY PRN Pain 07/03/21 11/06/23 11/06/23 History fluticasone propionate 50 1 spray intranasal BID PRN allergy 04/06/22 11/07/23 11/06/23 Rx mcg/actuation nasal symptoms #16 grams spray,suspension (Flonase Allergy Relief) Custom Spectrum AFO to left #1 ea 12/02/22 11/05/23 Unknown Rx divalproex 250 mg tablet,delayed 250 mg PO DAILY Migraine 07/31/23 11/06/23 11/06/23 History release (Depakote) tizanidine 2 mg capsule 2 mg PO DAILY Fibromyalgia 07/31/23 11/06/23 11/06/23 History trazodone 100 mg tablet 100 mg PO DAILY 09/23/23 11/06/23 11/06/23 History diclofenac sodium 1 % topical gel 4 g topical QID #100 grams 11/05/23 11/06/23 11/06/23 Rx (Arthritis Pain (diclofenac)) medroxyprogesterone 150 mg/mL See Rx Instructions .Route 11/05/23 11/06/23 08/06/23 Rx intramuscular syringe .COMPLEX #1 mL Allergies Allergy/AdvReac Type Severity Reaction Status Date / Time aspirin Allergy ALGY-Hives Verified 11/07/23 09:23 Sulfa (Sulfonamide Allergy ALGY-Hives Verified 11/07/23 09:23 Antibiotics) codeine AdvReac ADR-Nausea- Verified 11/07/23 09:23 STOMACH UPSET ibuprofen AdvReac ADR-Nausea- Verified 11/07/23 09:23 STOMACH UPSET naproxen AdvReac ADR-Nausea- Verified 11/07/23 09:23 STOMACH UPSET Current Medications Generic Name Dose Route Start Last Admin Trade Name Freq PRN Reason Stop Dose Admin Sodium Chloride 1,000 mls @ 30 mls/hr 11/07/23 09:15 11/07/23 09:34 Sodium Chloride 0.9% IV 11/08/23 09:14 30 mls/hr .Q24H BEL Administration PFSH Anesthesia Medical History High serum adrenocorticotropic hormone (ACTH) No pertinent past medical history neghx: htn,dm,thyroid,dvt/pe PCP: Nomi Nelson Morbid obesity Menorrhagia with irregular cycle Anxiety with depression Fibromyalgia Insomnia, controlled Osteoarthritis of both hands Surgical History H/O foot surgery (~03/29/21) Per patient, had several bones removed from left foot. Performed by Dr. Melendez at [facility]. History of hysteroscopy (05/02/05) Pelviscopy with D&C--- performed by Dr. Marino at [facility]--> mild uterine enlargement and mild endometriosis on the left side History of cholecystectomy (2002) [facility]--- laparoscopic procedure. H/O laparoscopy (07/18/08) Diagnostic laparoscopy performed on 07/18/2008. Records obtained and are scanned ----Procedure performed by Javy Frias in [facility] ambulatory surgery. Diagnostic laparoscopy was performed for pelvic pain of unknown etiology and history of endometriosis, history of PID. --Reviewed operative report shows that the uterus was normal size and mobile within the pelvis anterior cul-de-sac was clear showing no signs of adhesions or endometriosis posterior cul-de-sac was clear without signs of endometriosis or induration. Bilateral fallopian tubes were normal without signs of PID. Bilateral ovaries were normal without any adhesions or endometriosis. Appendix appeared normal. No adhesions noted around the liver. The diagnostic laparoscopy was within normal physiological limits and no obvious etiology of pain was present. Family History Grandfather Colon cancer Maternal grandfather--dx age 60's Family/Other Diabetes Maternal great aunt Uterine cancer Maternal aunt--dx age 50's Maternal Cousin x2-- both early 30's Mother Hypertension Uterine cancer dx age 45 Grandmother Ovarian cancer Maternal grandmother--dx age late 40's Other CAD (coronary artery disease) Cancer Denies family history of Rheumatoid arthritis Lupus Heart disease Hyperlipidemia Chronic kidney disease (CKD) Breast cancer Family history of thyroid problem Stroke Social History Smoking and tobacco/nicotine status: never used tobacco/nicotine Data Anesthesia Cardiac Studies: No Data to Display
--- NOTE | 2023-11-07 10:14 | ANES.PROC ---
Anesthesia Procedures Procedure/Date: 11/07/23 Nerve Block ^: Nerve Block 1: Main Anesthesia: other (100 mcg of fentanyl, 2 mg Versed) Time Out Performed: Yes Consent: requested by attending/covering physician and from patient Nerve block location: popliteal Anesthesia monitors applied: pulse oximetry, EKG, BP cuff and oxygen Nerve block position: semi sitting Anesthetic Used: ropivicaine 0.5% Amount of anesthesia used (mL): 25 Ultrasound used to: recognize landmarks Nerve Stimulator Used?: Yes Interscalene/Femoral BLK: 4 stimuplex 21 g needle used for position and inplane approach Injection: neg aspiration of heme Patient Tolerated Procedure: well Complications: none Nerve Block 2: Main Anesthesia: other Time Out Performed: Yes Consent: requested by attending/covering physician and from patient Nerve block location: adductor canal Anesthesia monitors applied: pulse oximetry, EKG, BP cuff and oxygen Nerve block position: supine Anesthetic Used: ropivicaine 0.5% Amount of anesthesia used (mL): 15 Ultrasound used to: recognize landmarks Nerve Stimulator Used?: Yes Interscalene/Femoral BLK: 4 stimuplex 21 g needle used for position and inplane approach Injection: neg aspiration of heme Patient Tolerated Procedure: well Complications: none
--- NOTE | 2023-11-07 11:36 | P.HPUD_ITS ---
Surgery/Procedure H&P Update DATE OF PROCEDURE: November 07, 2023 DATE H&P PERFORMED: 11/05/23 H&P UPDATE INFORMATION: I have reviewed H&P completed within last 30 days, I have examined patient prior to procedure, No changes to prior documentation and H&P is in [facility] EMR on date indicated PREOP DIAGNOSIS: Posttraumatic arthritis left ankle PLANNED PROCEDURE: Operation Date: 11/07/23 10:40 Proposed Procedures p Ankle Arthroscopy and debridement(Left) - Mñeo Marcial DPM
[2023-11-07 11:47] LABS: OR HCG Qualitative Urine Negative (Negative)
[2023-11-07] MEDS: ceFAZolin 2,000 mg SDV 2000 MG IVP (11:50)
[2023-11-07] MEDS: lidocaine-epi 1% 20 mL INJ INJECTION (12:10)
--- NOTE | 2023-11-07 12:20 | W.PM.BPON ---
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
--- NOTE | 2023-11-07 12:21 | P.OP_ITS ---
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 CPT code 92359 Implants: 4-0 nylon Surgeon: Meño Marcial DPM Wellness Guide: Ruchi Estimated blood loss: 2 12 Brief History: Patient has continued to have pain with compression, bracing, at home physical therapy consisting of range of motion, proprioceptive training and strengthening, has also been taking anti-inflammatories. Discussed utility of ankle arthroscopy with debridement patient would like to proceed with this at next available opportunity. I reviewed at length with the patient, the risks, potential complications, benefits, alternatives, expectations, and typical outcomes associated with the surgery. The risks and potential complications were explained in detail, including but not limited to infection, wound dehiscence or soft tissue complications, bleeding and hematoma, chronic edema, neuritis or nerve damage producing numbness or chronic pain, CRPS, failure to relieve pain or worsening pain, thick / painful / unsightly scar, limited motion / stiffness, malposition, delayed union, malunion, or nonunion, fracture, reaction to implants, anesthetic complications, venous thromboembolism, and deformity recurrence. I discussed the notion of no regrets with the patient as it pertains to complications and outcomes. The patient seemed to understand the nature of the proposed care and required convalescence. They asked appropriate questions, answered to their satisfaction. They are aware no guarantees can be made as to a satisfactory outcome and they understand there may be other possible unforeseen complications or outcomes not listed here that will be treated accordingly if they arise. There were no written or implied guarantees given to the patient. They gave informed consent to proceed. Procedure: Under mild sedation patient was brought to the operating room and placed on the operating table in supine position. A timeout was performed. Anesthesia was then administered by the anesthesia service, of note left popliteal block performed preoperatively per anesthesia service. Well-padded pneumatic tourniquet applied to the patient's left calf and the left lower extremity was scrubbed, prepped and draped utilizing normal aseptic technique. Attention was directed to the left anterior ankle where bony landmarks were palpated including lateral malleolus, medial malleolus and anterior medial and lateral gutters, medial portal was established just medial to the tibialis anterior tendon with gisele and tuck technique and after having gained access to the ankle joint utilizing the light from the ankle scope a anterior lateral portal was established avoiding neurovascular tendinous structures. Entry into the ankle joint demonstrated synovitis which was debrided extensively with oscillating shaver and suction with irrigation being fed by gravity. Able to v isualize medial and lateral gutters which were clean, able to visualize ATFL and Hesperus's ligament were intact, no obvious osteochondral lesion appreciated with arthroscope visualization. After extensive debridement of synovitis predominantly at the anterior ankle the ankle was irrigated and both portals closed with 4 nylon. Ankle scope was performed utilizing a Arthrex Lea scope and 3.5 mm shaver. Incisions were dressed utilizing Adaptic, sterile 4 x 4, Kerlix and Cedrick wrap, patient was placed in a cam boot and tourniquet was deflated with a prompt hyperemic response noted to the distal digits of the left foot. Patient tolerated the procedure and anesthesia well and was transferred to the PACU with vital signs stable and vascular status intact. Was given a prescription for pain medication, schedule follow-up in my cell phone number to contact with any postoperative questions or concerns. She is to be weightbearing as tolerated below threshold of pain with a cam boot for the next 2 weeks.
--- NOTE | 2023-11-07 13:28 | ANE.PACU2 ---
Inpatient post-anesthesia follow up: Airway intact: Yes Vital signs: Temperature 97.6 F Pulse Rate 69 Respiratory Rate 18 Blood Pressure 103/64 Pulse Oximetry 94 Oxygen Delivery Me thod Room Air Oxygen Flow Rate 6 Fraction of Inspir ed Oxygen Hydration adequate: Yes Nausea and vomiting: No Pain level: 1 Mental status: Baseline
== END 2023-11-07 13:28 | disposition home or self-care (01) ==
PROVIDERS: PCP Family Medicine; Visit Provider Podiatrist Foot & Ankle Surgery
PROC: (CPT 29898; principal; 2023-11-07 10:30)
DX: M25.572 Pain in left ankle and joints of left foot (principal); G89.29 Other chronic pain; M07.67 Enteropathic arthropathies, ankle and foot; M65.9 Synovitis and tenosynovitis, unspecified; M79.7 Fibromyalgia; Z79.891 Long term (current) use of opiate analgesic; E66.01 Morbid (severe) obesity due to excess calories; Z68.38 Body mass index [BMI] 38.0-38.9, adult
CPT/HCPCS: 29898; 81025; C1713; J0690; J1100; J2405; J2704; J3010; J7030

== ENCOUNTER → 2023-11-20 08:57 | Outpatient (BNVA) | payer MEDICARE, MEDICAID, SELFPAY | PROVIDERS: PCP Family Medicine; Visit Provider Podiatrist Foot & Ankle Surgery | DX: Z01.818 Encounter for other preprocedural examination (principal); M25.372 Other instability, left ankle; M25.572 Pain in left ankle and joints of left foot; M65.872 Other synovitis and tenosynovitis, left ankle and foot | CPT/HCPCS: 99024 ==

== ENCOUNTER → 2023-12-22 13:17 | Outpatient (BNVA) | payer MEDICARE, MEDICAID, SELFPAY | PROVIDERS: PCP Family Medicine; Visit Provider Podiatrist Foot & Ankle Surgery | DX: Z98.890 Other specified postprocedural states (principal); M25.372 Other instability, left ankle; M25.572 Pain in left ankle and joints of left foot | CPT/HCPCS: 99024 ==

== ENCOUNTER → 2024-02-02 13:53 | Outpatient (BNVA) | payer MEDICARE, MEDICAID, SELFPAY | PROVIDERS: PCP Family Medicine; Visit Provider Podiatrist Foot & Ankle Surgery | DX: M25.372 Other instability, left ankle (principal); Z98.890 Other specified postprocedural states; M65.872 Other synovitis and tenosynovitis, left ankle and foot | CPT/HCPCS: 99024 ==

== ENCOUNTER → 2024-05-04 10:29 | Outpatient (BNVA) | payer MEDICARE, MEDICAID, SELFPAY | PROVIDERS: Referring Provider Family Medicine; Visit Provider Psychiatry & Neurology Neurology | DX: R20.0 Anesthesia of skin (principal); R20.2 Paresthesia of skin; M79.672 Pain in left foot; M79.605 Pain in left leg | CPT/HCPCS: 95885; 95910 ==

== ENCOUNTER 2024-05-17 12:47 | Outpatient (RCR) | payer MEDICARE, MEDICAID, SELFPAY | END 2024-05-31 23:59 | disposition home or self-care (01) | LOC: SPT 12:47 | PROVIDERS: Visit Provider Podiatrist Foot & Ankle Surgery | DX: M25.372 Other instability, left ankle (principal) | CPT/HCPCS: 97110; 97112; 97161 ==

== ENCOUNTER 2024-05-21 15:27 | Outpatient (CLI) | payer MEDICARE, MEDICAID, SELFPAY ==
--- NOTE | 2024-05-21 15:34 | MR_ITS ---
WS: [id number] MRI HEAD WITH CONTRAST TECHNIQUE: Sagittal T1, T2 axial, T2 axial FLAIR, axial susceptibility weighted imaging, axial diffusion weighted images, and coronal T2 images were obtained. Pre and post-T1 axial and post T1 coronal images. ADC and FSPGR images. CLINICAL INFORMATION: NUMBNESS, HEADACHES COMPARISON: 2020 FINDINGS: No evidence of restricted diffusion to suggest acute ischemia. Ventricular system and basal cisterns are patent. Normal posterior fossa. Normal vascular flow voids at the skull base. No extra-axial fluid collections. No evidence of mass or mass effect. Paranasal sinuses and mastoid air cells are well aerated. Retention cyst cyst LEFT maxillary sinus. No hemosiderin on the susceptibly weighted images. Normal optic chiasm and pituitary infundibulum. Mild patchy supratentorial white matter changes. No significant parenchymal volume loss. No abnormal gadolinium enhancement. Normal dural venous sinuses. Retention cyst LEFT maxillary sinus. Retention cyst measures approximately 1.5 cm. MR/MR head wo/w con [id number] IMPRESSION: 1. No evidence of restricted diffusion to suggest acute ischemia. 2. Mild patchy supratentorial white matter changes nonspecific in a patient of this age but can be seen with hypertension, diabetes, and migraine headaches. Demyelinating disease is less likely. Findings are similar in appearance compar ed to 2020 with a few new tiny foci. 3. No significant parenchymal volume loss. 4. No hemosiderin on the susceptibly weighted images. 5. No abnormal gadolinium enhancement.
[2024-05-21] MEDS: gadobenate dimeglumine 20 mL vial IV (16:33)
== END 2024-05-21 15:28 | disposition home or self-care (01) ==
LOC: RAD 15:28
PROVIDERS: PCP Family Medicine; Visit Provider Nurse Practitioner Family
DX: R51.9 Headache, unspecified (principal); R93.0 Abnormal findings on diagnostic imaging of skull and head, not elsewhere classified; M27.40 Unspecified cyst of jaw
CPT/HCPCS: 70553

== ENCOUNTER 2024-07-15 09:42 | Outpatient (CLI) | payer OTHER, MEDICAID, SELFPAY ==
--- NOTE | 2024-07-15 10:00 | MM_ITS ---
WS: [id number] BILATERAL 3D TOMOSYNTHESIS DIGITAL DIAGNOSTIC MAMMOGRAPHY WITH CAD CLINICAL INFORMATION: N64.4 - Mastodynia HISTORY: LEFT breast pain COMPARISON: 2005 TECHNIQUE: Bilateral CC, MLO, and ML views. FINDINGS: Scattered fibroglandular densities bilaterally. Incidental intramammary lymph nodes RIGHT breast Pain marker LEFT breast. No underlying mammographic abnormalities in this area. Ultrasound is pending. ULTRASOUND BREAST LEFT TECHNIQUE: Ultrasound left breast focused area of concern. CLINICAL INFORMATION: N64.4 - Mastodynia FINDINGS: Ultrasound LEFT breast area of concern 6 o'clock position patient directed. Normal underlying parenchymal tissue. No cystic or solid lesions. No suspicious lesions to target for biopsy. MM/MM diag BI tomosynthesis [id number] IMPRESSION: DENSITY: There are scattered areas of fibroglandular density. BI-RADS: 2 - Benign. FOLLOW UP: Age 41 Recommend annual screening mammography age 41
--- NOTE | 2024-07-15 10:30 | US_ITS ---
WS: [id number] BILATERAL 3D TOMOSYNTHESIS DIGITAL DIAGNOSTIC MAMMOGRAPHY WITH CAD CLINICAL INFORMATION: N64.4 - Mastodynia HISTORY: LEFT breast pain COMPARISON: 2005 TECHNIQUE: Bilateral CC, MLO, and ML views. FINDINGS: Scattered fibroglandular densities bilaterally. Incidental intramammary lymph nodes RIGHT breast Pain marker LEFT breast. No underlying mammographic abnormalities in this area. Ultrasound is pending. ULTRASOUND BREAST LEFT TECHNIQUE: Ultrasound left breast focused area of concern. CLINICAL INFORMATION: N64.4 - Mastodynia FINDINGS: Ultrasound LEFT breast area of concern 6 o'clock position patient directed. Normal underlying parenchymal tissue. No cystic or solid lesions. No suspicious lesions to target for biopsy. US/US breast LT limited* [id number] IMPRESSION: DENSITY: There are scattered areas of fibroglandular density. BI-RADS: 2 - Benign. FOLLOW UP: Age 41 Recommend annual screening mammography age 41
== END 2024-07-15 09:43 | disposition home or self-care (01) ==
LOC: RAD 09:43
PROVIDERS: PCP Family Medicine; Visit Provider Nurse Practitioner Women's Health
DX: N64.4 Mastodynia (principal); R92.323 Mammographic fibroglandular density, bilateral breasts; R59.0 Localized enlarged lymph nodes
CPT/HCPCS: 76642; 77062; G0279